=== PATIENT | female | born 1980 ===

== ENCOUNTER 2025-05-20 17:30 | Inpatient (IN) | payer OTHER, SELFPAY ==
[2025-05-20 17:34] VITALS: BP 129/75; PULSE 106; RESP 17; TEMP 36.7; O2SAT 94; BMI 19.0
--- NOTE | 2025-05-20 17:37 | ED.C_ITS ---
HPI - Psych 2 General: Chief Complaint: Psychiatric Symptoms Stated Complaint: mhe Time Seen by Provider: 05/20/25 17:36 History of Present Illness: 45-year-old female with a history of met hamphetamine dependence, nicotine dependence, panic disorder and PTSD and depression who presents to the emergency room with worsening depression and a feeling that she might hurt herself. She is worried she will go back to doing methamphetamine. Initially she says she is not suicidal but then she starts to hit towards that she was and apparently she said something along these lines at the crisis center because the crisis center sent her here. Related Data Previous Rx's ?Medication ?Instructions ?Recorded aripiprazole 10 mg tablet (Abilify) 10 mg PO .morning #30 tabs 07/21/20 clonazepam 1 mg tablet (Klonopin) 1 mg PO TID #90 tabs 07/21/20 venlafaxine 150 mg 150 mg PO QAM #30 caps 07/21 capsule,extended release 24 hr (Effexor XR) Allergies Allergy/AdvReac Type Severity Reaction Status Date / Time No Known Allergies Allergy Verified 02/22/20 11:03 Review of Systems 2 Narrative: Constitutional symptoms: Negative except as documented in HPI. Skin symptoms: Negative except as documented in HPI. Eye symptoms: Negative except as documented in HPI. ENMT symptoms: Negative except as documented in HPI. Respiratory symptoms: Negative except as documented in HPI. Cardiovascular symptoms: Negative except as documented in HPI. Gastrointestinal symptoms: Negative except as documented in HPI. Genitourinary symptoms: Negative except as documented in HPI. Musculoskeletal symptoms: Negative except as documented in HPI. Neurologic symptoms: Negative except as documented in HPI. Psychiatric symptoms: Negative except as documented in HPI. Endocrine symptoms: Negative except as documented in HPI. PFSH ED 2 PFSH: Medical History (Updated 05/20/25 @ 19:31 by April Maria MD) Marfan syndrome Scoliosis Nicotine dependence, cigarettes, uncomplicated Panic disorder without agoraphobia Chronic post-traumatic stress disorder Major depressive disorder, recurrent episode with mood-congruent psychotic features Social History (Updated 09/03/19 @ 10:40 by Vivienne Grigsby RN) Smoking and tobacco/nicotine status: current every day tobacco/nicotine user cigarettes Packs smoked per day: 0.5 Physical Exam 2 Narrative: EXAM NARRATIVE: General: Alert, no acute distress. Skin: Warm, dry. Head: Normocephalic, atraumatic. Neck: Supple, trachea midline. Eye: Extraocular movements are intact. Ears, nose, mouth and throat: mucosa moist. Cardiovascular: Regular, Normal peripheral perfusion. Respiratory: Lungs are clear to auscultation, respirations are non-labored, breath sounds are equal, Symmetrical chest wall expansion. Gastrointestinal: Soft, Nontender, Non distended Musculoskeletal: Normal ROM, no deformity. Neurological: Alert and oriented, No focal neurological deficit observed. Psychiatric: Cooperative, patient has a depressed affect and eventually hence told she may be suicidal or that she might hurt herself. She is also scared to go home because she will start back on methamphetamine Course 2 Vital Signs: Vital signs: Vital Signs Temperature 98.0 F 05/20/25 17:34 Pulse Rate 106 H 05/20/25 17:34 Respiratory Rate 18 05/20/25 18:11 Blood Pressure 129/75 05/20/25 17:34 Pulse Oximetry 100 05/20/25 18:11 Oxygen Delivery Me thod Room Air 05/20/25 18:11 MDM - Psych Medical Decision Making Medical decision making: Patient's reason for coming to the emergency room: Worsening depression, methamphetamine abuse, suicidal thoughts Social determinants patient is unemployed I reviewed the patient's medical record. No previous provider notes. I reviewed the patient's current home meds Patient has venlafaxine, clonazepam and aripiprazole listed in her medication list Alternate historians: None Differential diagnosis: Patient with reported depression and suicidal ideation. concerns for infection, alcohol intoxication, cardiac issues or other medical problems prior to psychiatric admission. Workup: labwork, ekg ordered to evaluate the pathologies and to clear the patient medically prior to psychiatric admission Lab Review: Laboratory results were reviewed and interpreted by myself the emergency room physician. - Medically cleared. - Blood alcohol level is negative, -Tylenol and salicylate levels are negative. - Urinalysis and drug screen pending at the time of admission - No anemia. - BUN and creatinine are within normal limits. Assessment of risk: - Level of risk - Was hospitalization considered? Reexamination: Patient remained stable. No increased work of breathing. No altered mental status. No focal motor deficits. Consultation: I spoke with Dr. Fernandes who agrees to admission. Assessment and plan: -Admission to neuropsychiatric unit for continued evaluation and treatment. - All lab work was reviewed and interpreted personally by myself, the ER physician - Evaluation and treatment of this problem were appropriate in the emergency setting Lab Data 05/20/25 18:09 05/20/25 18:09 Laboratory Results WBC 7.50 10^3/uL (3.29-11.43) 05/20/25 18:09 RBC 3.70 10^6/uL (3.85-5.65) L 05/20/25 18:09 Hgb 8.20 g/dL (11.27-16.99) L 05/20/25 18:09 Hct 27.8 % (36-47) L 05/20/25 18:09 MCV 75.1 fl (85-98) L 05/20/25 18:09 MCH 22.2 pg (27-33) L 05/20/25 18:09 MCHC 29.5 g/dL (30-55) L 05/20/25 18:09 RDW 18.2 % (12.1-15.1) H 05/20/25 18:09 Plt Count 239 10^3/cmm (157-399) 05/20/25 18:09 MPV 9.5 fL (7.4-10.4) 05/20/25 18:09 Neut % (Auto) 69.0 % 05/20/25 18:09 Lymph % (Auto) 22.0 % 05/20/25 18:09 [place] % (Auto) 6.1 % 05/20/25 18:09 Eos % (Auto) 1.6 % 05/20/25 18:09 Baso % (Auto) 0.8 % 05/20/25 18:09 Neut # (Auto) 5.17 10^3/uL (1.8-7.7) 05/20/25 18:09 Lymph # (Auto) 1.7 10^3/uL (0.8-4.8) 05/20/25 18:09 [place] # (Auto) 0.5 10^3/uL (0.2-0.9) 05/20/25 18:09 Eos # (Auto) 0.1 10^3/uL (0.0-0.8) 05/20/25 18:09 Baso # (Auto) 0.1 10^3/uL (0.0-0.1) 05/20/25 18:09 Nucleated RBC % (auto) 0 % 05/20/25 18:09 Nucleated RBCs # 0.0 /100WBC 05/20/25 18:09 Sodium 143 mmol/L (136-145) 05/20/25 18:09 Potassium 3.7 mmol/L (3.5-5.1) 05/20/25 18:09 Chloride 109 mmol/L (98-107) H 05/20/25 18:09 Carbon Dioxide 28 mmol/L (22-29) 05/20/25 18:09 Anion Gap 9.7 (5-19) 05/20/25 18:09 BUN 14 mg/dL (6-20) 05/20/25 18:09 Creatinine 0.8 mg/dL (0.5-0.9) 05/20/25 18:09 GFR Calculation 77.2 mL/min (90-130) L 05/20/25 18:09 Glucose 172 mg/dL (65-115) H 05/20/25 18:09 Calculated Osmolality 301 mOsm/kg (285-295) H 05/20/25 18:09 Calcium 8.2 mg/dL (8.5-10.5) L 05/20/25 18:09 Total Bilirubin 0.2 mg/dL (0.15-1.2) 05/20/25 18:09 AST 13 U/L (0-32) 05/20/25 18:09 ALT 14 U/L (0-33) 05/20/25 18:09 Alkaline Phosphatase 91 U/L (35-105) 05/20/25 18:09 Total Protein 6.5 g/dL (6.6-8.7) L 05/20/25 18:09 Albumin 3.7 g/dL (3.5-5.2) 05/20/25 18:09 Globulin 2.8 g/dL (1.3-4.6) 05/20/25 18:09 TSH 0.65 uIU/mL (0.27-4.20) 05/20/25 18:09 Salicylates < 0.3 mg/dL (3-10) L 05/20/25 18:09 Acetaminophen < 5.0 ug/mL (10-30) L 05/20/25 18:09 Ethyl Alcohol < 10 mg/dL (0-10) 05/20/25 18:09 No radiology studies performed this visit Discharge Plan Discharge Patient Disposition: Admitted As Inpatient Clinical Impression: Depression, Methamphetamine abuse Condition: Stable Coding Level of Care Code ED Psychiatric Orderly for Criss Christine
[2025-05-20 18:11] VITALS: RESP 18; O2SAT 100
[2025-05-20 18:22] LABS: Hematocrit 27.8 % (36-47); Hemoglobin 8.20 g/dL (11.27-16.99); Mean Corpuscular HGB Conc 29.5 g/dL (30-55); Mean Corpuscular Hemoglobin 22.2 pg (27-33); Mean Corpuscular Volume 75.1 fl (85-98); Nucleated Red Blood Cells % 0 %; Platelet Count 239 10^3/cmm (157-399); Red Blood Count 3.70 10^6/uL (3.85-5.65); White Blood Count 7.50 10^3/uL (3.29-11.43)
[2025-05-20 18:50] LABS: Alanine Aminotransferase 14 U/L (0-33); Albumin Level 3.7 g/dL (3.5-5.2); Alkaline Phosphatase 91 U/L (35-105); Anion Gap 9.7 (5-19); Aspartate Amino Transferase 13 U/L (0-32); Blood Urea Nitrogen 14 mg/dL (6-20); Calcium 8.2 mg/dL (8.5-10.5); Carbon Dioxide 28 mmol/L (22-29); Chloride 109 mmol/L (98-107); Globulin 2.8 g/dL (1.3-4.6); Glucose 172 mg/dL (65-115); Osmolality Calculated 301 mOsm/kg (285-295); Potassium 3.7 mmol/L (3.5-5.1); Sodium 143 mmol/L (136-145); Thyroid Stimulating Hormone 0.65 uIU/mL (0.27-4.20); Total Protein 6.5 g/dL (6.6-8.7)
[2025-05-20 18:55] LABS: Acetaminophen < 5.0 ug/mL (10-30); Alcohol Level < 10 mg/dL (0-10); Salicylate < 0.3 mg/dL (3-10)
[2025-05-20 20:18] LABS: Glucose Urine UA Negative (Normal); Nitrate Urine Negative (Negative)
[2025-05-20 20:24] LABS: Add Urine Microscopic? YES; HCG Qualitative Urine. Negative (Negative)
--- NOTE | 2025-05-20 20:26 | PC.NURSE ---
96 HH Pt served with copy of 96 right sheet by this RN and security. Pt in [facility] chair, A&O and pleasant. Pt stated that she was unfamiliar with a 96 . Voiced no questions at that time.
[2025-05-20 20:27] VITALS: BP 125/64; PULSE 90; RESP 18; TEMP 36.8; O2SAT 98
[2025-05-20 20:29] LABS: Specific Gravity, Urine 1.031 (1.005-1.030)
[2025-05-20 20:33] LABS: PCP Screen Urine Negative (Negative)
[2025-05-20 21:46] VITALS: BP 125/64; PULSE 90; RESP 18; TEMP 36.8; O2SAT 98
--- OUTSIDE RECORDS SUMMARY | 2025-05-21 01:28 | XMS_ITS | Encounter Summary ---
Author Organization [facility] Address [address] [place] [address] Care Team Providers Care Combine Mechanic Name Role Phone Niru Guerrero DO Primary Care Provider +1- [phone] Encounter Details Date Type Department Care Team (Latest Contact Info) Description 10/21/2003 Outpatient Historical [facility] Medicine [address] [phone] Ara Giron MD [address] [place] [address] VAGINITIS NOS (Primary Dx); MENTAL DISORDER-POSTPART Social History Tobacco Use Types Packs/Day Years Used Date Smoking Tobacco: Never Assessed Comments Unknown Sex and Gender Information Value Date Recorded Sex Assigned at Not on file 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
--- OUTSIDE RECORDS SUMMARY | 2025-05-21 01:29 | XMS_ITS | Encounter Summary ---
Author Organization [facility] Address [address] [place] [address] Care Team Providers Care Field Observer Name Role Phone Niru Guerrero DO Primary Care Provider +1- [phone] Encounter Details Date Type Department Care Team (Latest Contact Info) Description 12/31/2004 Outpatient Historical [facility] Medicine [address] [phone] Ara Giron MD [address] [place] [address] SUPERVIS OTHER NORMAL PREG (Primary Dx) Social History Tobacco Use Types Packs/Day Years Used Date Smoking Tobacco: Never Assessed Comments Unknown Sex and Gender Information Value Date Recorded Sex Assigned at Not on file 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
--- OUTSIDE RECORDS SUMMARY | 2025-05-21 01:30 | XMS_ITS | Clinical Summary ---
Author Organization [facility] Address [address] [place] [address] Phone Care Team Providers Care Lining Folder Name Role Phone Niru Guerrero Primary Care Provider Allergies No known active allergies Medications PHENAZOPYRIDINE HCL (AZO ORAL) Take by mouth. Active clonazePAM (KlonoPIN) 2 mg tablet Take by mouth 3 times daily. Active venlafaxine (EFFEXOR XR) 150 mg Extended Release 24 hour capsule Take 150 mg by mouth daily. Active lithium carbonate (ESKALITH CR) 450 mg Controlled Release tablet Take 450 mg by mouth 2 times daily. Active ARIPiprazole (ABILIFY) 2 mg tablet Take 2 mg by mouth daily. Active ondansetron (ZOFRAN) 4 mg Tablet Take 1 Tablet (4 mg) by mouth every 6 hours as needed for Nausea. 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 Gender Identity Not on file Sexual Orientation Not on file Last Filed Vital Signs Vital Sign Reading Time Taken Comments Blood Pressure 114/70 12/01/2019 4:23 PM CDT Pulse - - Temperature 37.3 C (99.2 F) 12/01/2019 4:23 PM CDT Respiratory Rate 15 12/01/2019 4:23 PM CDT Oxygen Saturation 100% 12/01/2019 4:23 PM CDT Inhaled Oxygen Concentration - - Weight 81.5 kg (179 lb 9.6 oz) 12/01/2019 4:23 P M CDT Height 182.9 cm (6') 12/01/2019 4:23 PM CDT Body Mass Index 24.36 12/01/2019 4:23 PM CDT Plan of Treatment Health Maintenance Due Date Last Done Comments DTAP/TDAP/TD VACCINES (1 - Tdap) 1998 HEPATITIS B VACCINES (1 of 3 - 19+ 3-dose series) 1998 Preventative Visit-Managed Medicaid 1998 HPV/Cotest (21-29) 2000 CERVICAL CANCER SCREENING 2009 HPV/Cotest (30-65) 2009 PAP SMEAR 2009 BREAST CANCER SCREENING 2019 COLORECTAL SCREENING 2024 Colorectal Cancer Screening 2024 FIT-DNA Q 3 years 2024 FIT/FOBT Q 1 year 2024 Flex Sig/CT Colonography Q 5 years 2024 INFLUENZA VACCINE (#1) 2025 04/22/2005 HPV VACCINES Aged Out No longer eligi ble based on patient's age to complete this topic Insurance [place] Care Teams Lining Folder Relationship Specialty Start Date End Date Niru Guerrero DO [address] [place] [address] PCP - General Family Practice 03/30/16
--- OUTSIDE RECORDS SUMMARY | 2025-05-21 01:30 | XMS_ITS | Encounter Summary ---
Author Organization [facility] Address [address] [place] [address] Care Team Providers Care Machine Slat Basket Maker Name Role Phone Niru Guerrero DO Primary Care Provider [phone]- [phone] Encounter Details Date Type Department Care Team (Latest Contact Info) Description 04/01/2005 Outpatient Historical [facility] Medicine [address] [phone] Ara Giron MD [address] [place] [address] SUPERVIS OTHER NORMAL PREG (Primary Dx) Social History Tobacco Use Types Packs/Day Years Used Date Smoking Tobacco: Never Assessed Comments Unknown Sex and Gender Information Value Date Recorded Sex Assigned at Not on file 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
--- OUTSIDE RECORDS SUMMARY | 2025-05-21 01:31 | XMS_ITS | Encounter Summary ---
Author Organization [facility] Address [address] [place] [address] Care Team Providers Care Python Programmer Name Role Phone Niru Guerrero DO Primary Care Provider +1- [phone] Encounter Details Date Type Department Care Team (Latest Contact Info) Description 04/22/2005 Outpatient Historical [facility] Medicine [address] [phone] Ara Giron MD [address] [place] [address] SUPERVIS OTHER NORMAL PREG (Primary Dx); DYSTHYMIC DISORDER; Vaccine for influenza Social History Tobacco Use Types Packs/Day Years Used Date Smoking Tobacco: Never Assessed Comments Unknown Sex and Gender Information Value Date Recorded Sex Assigned at Not on file Legal 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
--- OUTSIDE RECORDS SUMMARY | 2025-05-21 01:32 | XMS_ITS | Encounter Summary ---
Author Organization [facility] Address [address] [place] [address] Care Team Providers Care Diamond Die Polisher Name Role Phone Niru Guerrero DO Primary Care Provider +1- [phone] Encounter Details Date Type Department Care Team (Latest Contact Info) Description 01/22/2005 Outpatient Historical 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
--- OUTSIDE RECORDS SUMMARY | 2025-05-21 01:32 | XMS_ITS | Encounter Summary ---
Author Organization [facility] Address [address] [place] [address] Care Team Providers Care Power Generation Turbine Room Operator Name Role Phone Niru Guerrero DO Primary Care Provider +1- [phone] Encounter Details Date Type Department Care Team (Latest Contact Info) Description 01/22/2005 Outpatient Historical [facility] Medicine [place] [address] [place] [phone] Krysta Hernandez, 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
--- OUTSIDE RECORDS SUMMARY | 2025-05-21 01:33 | XMS_ITS | Encounter Summary ---
Author Organization [facility] Address [address] [place] [address] Care Team Providers Care Tight Barrel Inspector Name Role Phone Niru Guerrero DO Primary Care Provider +1- [phone] Encounter Details Date Type Department Care Team (Latest Contact Info) Description 02/25/2005 Outpatient Historical [facility] Medicine [address] [phone] Ara Giron MD [address] [place] [address] MILD DYSPLASIA OF CERVIX (Primary Dx); SUPERVIS OTHER NORMAL PREG Social History Tobacco Use Types Packs/Day Years Used Date Smoking Tobacco: Never Assessed Comments Unknown Sex and Gender Information Value Date Recorded Sex Assigned at Not on file 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
--- OUTSIDE RECORDS SUMMARY | 2025-05-21 01:34 | XMS_ITS | Encounter Summary ---
Author Organization [facility] Address [address] [place] [address] Care Team Providers Care Production Solderer Name Role Phone Niru Guerrero DO Primary Care Provider +1- [phone] Encounter Details Date Type Department Care Team (Latest Contact Info) Description 05/06/2005 Outpatient Historical [facility] Medicine [address] [phone] Aar Giron MD [address] [place] [address] SUPERVIS OTHER NORMAL PREG (Primary Dx) Social History Tobacco Use Types Packs/Day Years Used Date Smoking Tobacco: Never Assessed Comments Unknown Sex and Gender Information Value Date Recorded Sex Assigned at Not on file 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
--- OUTSIDE RECORDS SUMMARY | 2025-05-21 01:34 | XMS_ITS | Encounter Summary ---
Author Organization [facility] Address [address] [place] [address] Care Team Providers Care Real Estate Financial Analyst Name Role Phone Niru Guerrero DO Primary Care Provider +1- [phone] Encounter Details Date Type Department Care Team (Latest Contact Info) Description 05/21/2005 Outpatient Historical [facility] Medicine [address] [phone] Ara Giron MD [address] [place] [address] SUPERVIS OTHER NORMAL PREG (Primary Dx) Social History Tobacco Use Types Packs/Day Years Used Date Smoking Tobacco: Never Assessed Comments Unknown Sex and Gender Information Value Date Recorded Sex Assigned at Not on file Legal Sex Female 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
--- OUTSIDE RECORDS SUMMARY | 2025-05-21 01:35 | XMS_ITS | Encounter Summary ---
Author Organization [facility] Address [address] [place] [address] Care Team Providers Care Radiology Resident Name Role Phone Niru Guerrero DO Primary Care Provider +1- [phone] Encounter Details Date Type Department Care Team (Latest Contact Info) Description 05/31/2005 Outpatient Historical [facility] Medicine [address] [phone] Sourav Villanueva MD [address] [place] [address] SUPERVIS OTHER NORMAL PREG (Primary Dx) Social History Tobacco Use Types Packs/Day Years Used Date Smoking Tobacco: Never Assessed Comments Unknown Sex and Gender Information Value Date Recorded Sex Assigned at Not on file 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
--- OUTSIDE RECORDS SUMMARY | 2025-05-21 01:36 | XMS_ITS | Encounter Summary ---
Author Organization [facility] Address [address] [place] [address] Care Team Providers Care Jig Grinder Set Up Operator Name Role Phone Niru Gurerero DO Primary Care Provider +1- [phone] Encounter Details Date Type Department Care Team (Latest Contact Info) Description 03/03/2006 Outpatient Historical [facility] [place] [address] [phone] Krysta Hernandez, [facility] [address] [phone] Leukorrhea, not Specified as Infective (Primary Dx) Social History Tobacco Use Types Packs/Day Years Used Date Smoking Tobacco: Never Assessed Comments Unknown Sex and Gender Information Value Date Recorded Sex Assigned at Not on file 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
--- OUTSIDE RECORDS SUMMARY | 2025-05-21 01:36 | XMS_ITS | Encounter Summary ---
Author Organization [facility] Address [address] [place] [address] Care Team Providers Care Atg Architect Name Role Phone Niru Guerrero DO Primary Care Provider +1- [phone] Encounter Details Date Type Department Care Team (Latest Contact Info) Description 06/07/2005 Outpatient Historical [facility] Medicine [address] [phone] Sourav Villanueva MD [address] [place] [address] SUPERVIS OTHER NORMAL PREG (Primary Dx) Social History Tobacco Use Types Packs/Day Years Used Date Smoking Tobacco: Never Assessed Comments Unknown Sex and Gender Information Value Date Recorded Sex Assigned at Not on file Legal Sex Female 5: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
--- OUTSIDE RECORDS SUMMARY | 2025-05-21 01:37 | XMS_ITS | Encounter Summary ---
Author Organization [facility] Address [address] [place] [address] Care Team Providers Care Telecommunications Project Manager Name Role Phone Niru Guerrero DO Primary Care Provider +1- [phone] Encounter Details Date Type Department Care Team (Latest Contact Info) Description 06/14/2005 Outpatient Historical [facility] Medicine [address] [phone] Sourav Villanueva MD [address] [place] [address] POSTPART CARE AFTER DEL (Primary Dx) Social History Tobacco Use Types Packs/Day Years Used Date Smoking Tobacco: Never Assessed Comments Unknown Sex and Gender Information Value Date Recorded Sex Assigned at Not on file Legal Sex Female 5:28 AM PARTITION NOTCHER Gender Identity Not on file Sexual Orientation Not on file documented as of this encounter Plan of Treatment Not on file documented as of this encounter Visit Diagnoses Diagnosis care and examination immediately after delivery- Primary documented in this encounter Care Teams Telecommunications Project Manager Relationship Specialty Start Date End Date Niru Guerrero DO [address] [place] [phone] PCP - General Family Practice 03/30/16 documented as of this encounter
--- OUTSIDE RECORDS SUMMARY | 2025-05-21 01:37 | XMS_ITS | Encounter Summary ---
Author Organization [facility] Address [address] [place] [address] Care Team Providers Care Senior Quality Control Inspector Name Role Phone Niru Guerrero DO Primary Care Provider +1 [phone] Encounter Details Date Type Department Care Team (Latest Contact Info) Description 03/03/2006 Outpatient Historical [facility] Medicine [address] [phone] Krysta Hernandez, [facility] [address] [phone] Abnormal Glandular Papanicolaou Smear of Cervix (Primary Dx); Panic Disorder without Agoraphobia; Dysthymic Disorder Social History Tobacco Use Types Packs/Day Years Used Date Smoking Tobacco: Never Assessed Comments Unknown Sex and Gender Information Value Date Recorded Sex Assigned at Not on file Legal Sex Female 5:28 AM BUS DISPATCHER INTERSTATE Gender Identity Not on file Sexual Orientation Not on file documented as of this encounter Plan of Treatment Not on file documented as of this encounter Visit Diagnoses Diagnosis Abnormal glandular Papanicolaou smear of cervix- Primary Panic disorder without agoraphobia Dysthymic disorder documented in this encounter Care Teams Senior Quality Control Inspector Relationship Specialty Start Date End Date Niru Guerrero DO [address] [place] [address] PCP - General Family Practice 03/30/16 documented as of this encounter
--- OUTSIDE RECORDS SUMMARY | 2025-05-21 01:38 | XMS_ITS | Encounter Summary ---
Author Organization [facility] Address [address] [place] [address] Care Team Providers Care Diamond Grinder Name Role Phone Niru Guerrero DO Primary Care Provider +1- [phone] Encounter Details Date Type Department Care Team (Latest Contact Info) Description 07/15/2005 Outpatient Historical [facility] Medicine [address] [phone] Ara Giron MD [address] [place] [address] POSTPART CARE AFTER DEL (Primary Dx) Social History Tobacco Use Types Packs/Day Years Used Date Smoking Tobacco: Never Assessed Comments Unknown Sex and Gender Information Value Date Recorded Sex Assigned at Not on file Legal Sex Female 5:28 AM 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
--- OUTSIDE RECORDS SUMMARY | 2025-05-21 01:38 | XMS_ITS | Encounter Summary ---
Author Organization [facility] Address [address] [place] [address] Care Team Providers Care Laboratory Director Name Role Phone Niru Guerrero DO Primary Care Provider +1- [phone] Encounter Details Date Type Department Care Team (Latest Contact Info) Description 03/28/2006 Outpatient Historical [facility] [address] [place] [address] Sourav Villanueva MD [address] [place] [address] Moderate Dysplasia of Cervix (Primary Dx) Social History Tobacco Use Types Packs/Day Years Used Date Smoking Tobacco: Never Assessed Comments Unknown Sex and Gender Information Value Date Recorded Sex Assigned at Not on file Legal Sex Female 5:28 AM CARD GRINDER Gender Identity Not on file Sexual Orientation Not on file documented as of this encounter Plan of Treatment Not on file documented as of this encounter Visit Diagnoses Diagnosis Moderate dysplasia of cervix- Primary documented in this encounter Care Teams Laboratory Director Relationship Specialty Start Date End Date Niru Guerrero DO [address] [place] [address] PCP - General Family Practice 03/30/16 documented as of this encounter
--- OUTSIDE RECORDS SUMMARY | 2025-05-21 01:39 | XMS_ITS | Encounter Summary ---
Author Organization [facility] Address [address] [place] [address] Care Team Providers Care Geology Technician Name Role Phone Niru Guerrero DO Primary Care Provider +1- [phone] Encounter Details Date Type Department Care Team (Latest Contact Info) Description 03/28/2006 Outpatient Historical [address] [phone] Sourav Villanueva MD [address] [place] [address] Abnormal Glandular Papanicolaou Smear of Cervix (Primary Dx) Social History Tobacco Use Types Packs/Day Years Used Date Smoking Tobacco: Never Assessed Comments Unknown Sex and Gender Information Value Date Recorded Sex Assigned at Not on file Legal Sex Female 5:28 AM DEPOT 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
--- OUTSIDE RECORDS SUMMARY | 2025-05-21 01:39 | XMS_ITS | Encounter Summary ---
Author Organization [facility] Address [address] [place] [address] Care Team Providers Care Student Success Coach Name Role Phone Niru Guerrero DO Primary Care Provider +1- [phone] Encounter Details Date Type Department Care Team (Latest Contact Info) Description 03/28/2006 Outpatient Historical [address] [phone] Sourav Villanueva MD [address] [place] [address] Dysplasia of Cervix, Unspecified (Primary Dx) Social History Tobacco Use Types Packs/Day Years Used Date Smoking Tobacco: Never Assessed Comments Unknown Sex and Gender Information Value Date Recorded Sex Assigned at Not on file Legal Sex Female 5:28 AM PRIMARY 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
--- OUTSIDE RECORDS SUMMARY | 2025-05-21 01:40 | XMS_ITS | Encounter Summary ---
Author Organization [facility] Address [address] [place] [address] Care Team Providers Care Filter Changing Technician Name Role Phone Niru Guerrero DO Primary Care Provider +1- [phone] Encounter Details Date Type Department Care Team (Latest Contact Info) Description 03/24/2006 Outpatient Historical [facility] Medicine [place] [address] [phone] Krysta Hernandez, [facility] [address] [phone] Abnormal Glandular Papanicolaou Smear of Cervix (Primary Dx) Social History Tobacco Use Types Packs/Day Years Used Date Smoking Tobacco: Never Assessed Comments Unknown Sex and Gender Information Value Date Recorded Sex Assigned at Not on file Legal Sex Female 5:28 AM DISABILITY RATER Gender Identity Not on file Sexual Orientation Not on file documented as of this encounter Plan of Treatment Not on file documented as of this encounter Visit Diagnoses Diagnosis Abnormal glandular Papanicolaou smear of cervix- Primary documented in this encounter Care Teams Filter Changing Technician Relationship Specialty Start Date End Date Niru Guerrero DO [address] [place] [address] PCP - General Family Practice 03/30/16 documented as of this encounter
--- OUTSIDE RECORDS SUMMARY | 2025-05-21 01:41 | XMS_ITS | Encounter Summary ---
Author Organization [facility] Address [address] [place] [address] Care Team Providers Care Support Director Name Role Phone Niru Guerrero DO Primary Care Provider +1 [phone] Encounter Details Date Type Department Care Team (Latest Contact Info) Description 03/15/2007 Outpatient Historical [facility] Medicine [address] [phone] Krysta Hernandez, [facility] [address] [phone] Affective Personality (CMS/HCC) (Primary Dx) Social History Tobacco Use Types Packs/Day Years Used Date Smoking Tobacco: Never Assessed Comments Unknown Sex and Gender Information Value Date Recorded Sex Assigned at Not on file Legal Sex Female 5:28 AM REFERRAL MANAGER Gender Identity Not on file Sexual Orientation Not on file documented as of this encounter Plan of Treatment Not on file documented as of this encounter Procedures Procedure Name Priority Date/Time Associated Diagnosis Comments DRUG SCREEN, URINE Routine 03/15/2007 11 :46 AM CDT documented in this encounter Results * (ABNORMAL) DRUG SCREEN, URINE (03/15/2007 11:46 AM CDT) AMPHETAMINE QUAL, URINE Drug Negative Drug Negative INTERFACE SYSTEM Comment: All components of the Urine Drug Screen are performed by Immunoassay. Confirmation must be requested by physician before being sent out. NOTE: The ingestion of natural herbal and plant products containing Ephedra/Ephedra metabolites can produce in urine one or more substances capable of cross reacting with amphetamine/methamphetamine immunoassays. This test provides a preliminary result only. A more specific alternative chemical method must be used to obtain a confirmed analytical result. Drug Screening Cutoff Amphetamine/Methamphetamine 1000 ng/ml Barbiturates 200 ng/ml Benzodiazepines 200 ng/ml Cannabinoid 50 ng/ml Cocaine Metabolite 300 ng/ml Opiates 300 ng/ml PCP 25 ng/ml Immunoassay Screening results above cutoff value are reported as Positive. BARBITURATE QUAL, URINE Drug Negative Drug Negative INTERFACE SYSTEM COCAINE QUAL URINE Drug Negative Drug Negative INTERFACE SYSTEM PCP QUAL, URINE Drug Negative Drug Negative INTERFACE SYSTEM CANNABINOIDS QUAL, URINE Drug Positive(A) Drug Negative INTERFACE SYSTEM BENZODIAZEPINE QUAL, URINE Drug Positive(A) Drug Negative INTERFACE SYSTEM OPIATE QUAL, URINE Drug Negative Drug Negative INTERFACE SYSTEM 03/15/2007 11:4 6 AM CDT us Krysta Hernandez CALENDER OPERATOR URINE ORDERABLES Edited INTERFACE SYSTEM Refer to clinic/hospital department documented in this encounter Visit Diagnoses Diagnosis Bipolar I disorder, most recent episode (or current) unspecified (CMS/[facility])- Primary Bipolar I disorder, most recent episode (or current) unspecified documented in this encounter Care Teams Support Director Relationship Specialty Start Date End Date Niru Guerrero DO [address] [place] [address] PCP - General Family Practice 03/30/16 documented as of this encounter
--- OUTSIDE RECORDS SUMMARY | 2025-05-21 01:41 | XMS_ITS | Clinical Summary ---
Author Organization [facility] Address [address] [facility] Attn: Epic Prelude ADT [place] [address] Care Team Providers Care Dryerman/Woman Name Role Phone Niru Guerrero Primary Care Provider +1- [phone] Allergies No known active allergies Medications clonazePAM (KlonoPIN) 0.5 mg TabletIndication s:Generalized anxiety disorder Take 1 Tablet (0.5 mg) by mouth 1 time daily as needed for Anxiety. 20 Tablet 12/02/2022 Active Active Problems Problem Noted Date Diagnosed Date Agoraphobia 12/02/2022 Cigarette dependence 03/30/2016 Immunizations Immunization Administration Dates Next Due Influenza Seasonal Unspecified Formulation IM Social History Tobacco Use Types Packs/Day Years Used Date Smoking Tobacco: Every Day Cigarettes Alcohol Use Standard Drinks/Week Comments No 0 (1 standard drink = 0.6 oz pur e alcohol) Comments No Sex and Gender Information Value Date Recorded Sex Assigned at Not on file Legal Sex Female 1:00 AM HAND PLATE STACKER Gender Identity Not on file Sexual Orientation Not on file Last Filed Vital Signs Vital Sign Reading Time Taken Comments Blood Pressure 118/70 12/02/2022 9:23 AM CDT Pulse 90 12/02/2022 9:44 AM CDT Temperature 37.2 C (99 F) 12/02/2022 9:23 AM CDT Respiratory Rate 18 12/02/2022 9:23 AM CDT Oxygen Saturation 99% 12/02/2022 9:23 AM CDT Inhaled Oxygen Concentration - - Weight 66.7 kg (147 lb) 12/02/2022 9:23 AM CDT Height 185.4 cm (6' 1 ) 12/02/2022 9:23 AM CDT Body Mass Index 19.39 12/02/2022 9:23 AM CDT Plan of Treatment Health Maintenance Due Date Last Done Comments DTAP/TDAP/TD VACCINES (1 - Tdap) 1998 HEPATITIS B VACCINES (1 of 3 - 19+ 3-dose series) 1998 HPV/Cotest (21-29) 2000 CERVICAL CANCER SCREENING 2009 HPV/Cotest (30-65) 2009 PAP SMEAR 2009 BREAST CANCER SCREENING 2019 COLORECTAL SCREENING 2024 Colorectal Cancer Screening 2024 FIT-DNA Q 3 years 2024 FIT/FOBT Q 1 year 2024 Flex Sig/CT Colonography Q 5 years 2024 INFLUENZA VACCINE (#1) 2025 04/22/2005 HPV VACCINES Aged Out No longer eligi ble based on patient's age to complete this topic Care Teams Dryerman/Woman Relationship Specialty Start Date End Date Niru Guerrero DO [address] [place] [address] PCP - General Family Practice 03/30/16
--- OUTSIDE RECORDS SUMMARY | 2025-05-21 01:42 | XMS_ITS | Encounter Summary ---
Author Organization [facility] [employer] Address [address] [place] [address] Care Team Providers Care [address] Tester Name Role Phone Niru Guerrero DO Primary Care Provider +1- [phone] Encounter Details Date Type Department Care Team (Latest Contact Info) Description 04/01/2006 Outpatient Historical [facility] [address] [place] [address] [place] [address] Ara Giron MD [address] [place] [phone] Moderate Dysplasia of Cervix (Primary Dx) Social History Tobacco Use Types Packs/Day Years Used Date Smoking Tobacco: Never Assessed Comments Unknown Sex and Gender Information Value Date Recorded Sex Assigned at Not on file Legal Sex Female 5:28 AM GERIATRIC PERSONAL CARE AIDE Gender Identity Not on file Sexual Orientation Not on file documented as of this encounter Plan of Treatment Not on file documented as of this encounter Visit Diagnoses Diagnosis Moderate dysplasia of cervix- Primary documented in this encounter Care Teams Drive Tester Relationship Specialty Start Date End Date Niru Guerrero DO [address] [place] [address] PCP - General Family Practice 03/30/16 documented as of this encounter
--- OUTSIDE RECORDS SUMMARY | 2025-05-21 01:43 | XMS_ITS | Encounter Summary ---
Author Organization [facility] Address [address] [place] [address] Care Team Providers Care Clinical Staff Anesthesiologist Name Role Phone Niru Guerrero DO Primary Care Provider +1- [phone] Encounter Details Date Type Department Care Team (Latest Contact Info) Description 04/01/2006 Outpatient Historical [facility] Medicine [address] [phone] Ara Giron MD [address] [place] [phone] Moderate Dysplasia of Cervix (Primary Dx) Social History Tobacco Use Types Packs/Day Years Used Date Smoking Tobacco: Never Assessed Comments Unknown Sex and Gender Information Value Date Recorded Sex Assigned at Not on file Legal Sex Female 5:28 AM LODGING FACILITIES MANAGER Gender Identity Not on file Sexual Orientation Not on file documented as of this encounter Plan of Treatment Not on file documented as of this encounter Visit Diagnoses Diagnosis Moderate dysplasia of cervix- Primary documented in this encounter Care Teams Clinical Staff Anesthesiologist Relationship Specialty Start Date End Date Niru Guerrero DO [address] [place] [address] PCP - General Family Practice 03/30/16 documented as of this encounter
--- OUTSIDE RECORDS SUMMARY | 2025-05-21 01:43 | XMS_ITS | Encounter Summary ---
Author Organization [facility] Address [address] [place] [address] Care Team Providers Care Foundry Patternmaker Name Role Phone Niru Guerrero DO Primary Care Provider +1- [phone] Encounter Details Date Type Department Care Team (Latest Contact Info) Description 12/15/2006 Outpatient Historical [facility] Medicine [place] [address] [phone] Krysta Hernandez, [facility] [address] [phone] Generalized Anxiety Disorder (Primary Dx); Dysthymic Disorder Social History Tobacco Use Types Packs/Day Years Used Date Smoking Tobacco: Never Assessed Comments Unknown Sex and Gender Information Value Date Recorded Sex Assigned at Not on file Legal Sex Female 5: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
--- OUTSIDE RECORDS SUMMARY | 2025-05-21 01:44 | XMS_ITS | Encounter Summary ---
Author Organization [facility] Address [address] [place] [address] Care Team Providers Care Backshoe Person Name Role Phone Niru Guerrero DO Primary Care Provider +1- [phone] Encounter Details Date Type Department Care Team (Latest Contact Info) Description 10/21/2003 Outpatient Historical [facility] Medicine [address] [phone] Ara Giron MD [address] [place] [address] VAGINITIS NOS (Primary Dx) Social History Tobacco Use Types Packs/Day Years Used Date Smoking Tobacco: Never Assessed Comments Unknown Sex and Gender Information Value Date Recorded Sex Assigned at Not on file Legal Sex Female 5:28 AM AUTHORIZATION REPRESENTATIVE Gender Identity Not on file Sexual Orientation Not on file documented as of this encounter Plan of Treatment Not on file documented as of this encounter Visit Diagnoses Diagnosis Vaginitis and vulvovaginitis, unspecified- Primary documented in this encounter Care Teams Backshoe Person Relationship Specialty Start Date End Date Niru Guerrero DO [address] [place] [address] PCP - General Family Practice 03/30/16 documented as of this encounter
--- OUTSIDE RECORDS SUMMARY | 2025-05-21 01:44 | XMS_ITS | Encounter Summary ---
Author Organization [facility] Address [address] [place] [address] Care Team Providers Care Chief Clerk Name Role Phone Niru Guerrero DO Primary Care Provider +1 [phone] Encounter Details Date Type Department Care Team (Latest Contact Info) Description 03/15/[address] [facility] [address] [phone] Krysta Hernandez, [facility] [address] [phone] Affective Personality (CMS/HCC) (Primary Dx); Generalized Anxiety Disorder Social History Tobacco Use Types Packs/Day Years Used Date Smoking Tobacco: Never Assessed Comments Unknown Sex and Gender Information Value Date Recorded Sex Assigned at Not on file Legal Sex Female 5:28 AM SCOREBOARD OPERATOR Gender Identity Not on file Sexual Orientation Not on file documented as of this encounter Plan of Treatment Not on file documented as of this encounter Visit Diagnoses Diagnosis Bipolar I disorder, most recent episode (or current) unspecified (CMS/HCC)- Primary Bipolar I disorder, most recent episode (or current) unspecified Generalized anxiety disorder documented in this encounter Care Teams Chief Clerk Relationship Specialty Start Date End Date Niru Guerrero DO [address] [place] [address] PCP - General Family Practice 03/30/16 documented as of this encounter
--- OUTSIDE RECORDS SUMMARY | 2025-05-21 01:45 | XMS_ITS | Encounter Summary ---
Author Organization [facility] Address [address] [place] [address] Care Team Providers Care Program Attendant Name Role Phone Niru Guerrero DO Primary Care Provider [phone] Encounter Details Date Type Department Care Team (Latest Contact Info) Description 03/31/2007 Outpatient Historical [facility] Medicine Mobile [address] [phone] Krysta Hernandez, [facility] [address] [phone] Generalized Anxiety Disorder (Primary Dx); Dysthymic Disorder Social History Tobacco Use Types Packs/Day Years Used Date Smoking Tobacco: Never Assessed Comments Unknown Sex and Gender Information Value Date Recorded Sex Assigned at Not on file Legal Sex Female 5:28 AM DIRECTOR OF RECRUITMENT Gender Identity Not on file Sexual Orientation Not on file documented as of this encounter Plan of Treatment Not on file documented as of this encounter Visit Diagnoses Diagnosis Generalized anxiety disorder- Primary Dysthymic disorder documented in this encounter Care Teams Program Attendant Relationship Specialty Start Date End Date Niru Guerrero DO [address] [place] [phone] PCP - General Family Practice 03/30/16 documented as of this encounter
--- OUTSIDE RECORDS SUMMARY | 2025-05-21 01:46 | XMS_ITS | Encounter Summary ---
Author Organization [facility] Address [address] [place] [address] Care Team Providers Care Tool Marker Name Role Phone Niru Guerrero DO Primary Care Provider [phone] Encounter Details Date Type Department Care Team (Late st Contact Info) Description 10/21/2003 Outpatient Historical [facility] Medicine [address] [phone] Ara Giron MD [address] [place] [phone] Social History Tobacco Use Types Packs/Day Years Used Date Smoking Tobacco: Never Assessed Comments Unknown Sex and Gender Information Value Date Recorded Sex Assigned at Not on file Legal Sex Female 5:28 AM MANAGER MERCHANDISE Gender Identity Not on file Sexual Orientation Not on file documented as of this encounter Plan of Treatment Not on file documented as of this encounter Visit Diagnoses Not on filedocumented in this encounter Care Teams Tool Marker Relationship Specialty Start Date End Date Niru Guerrero DO [address] [place] [phone] PCP - General Family Practice 03/30/16 documented as of this encounter
[2025-05-21 06:00] VITALS: BP 113/64; PULSE 87; RESP 14; TEMP 36.8; O2SAT 90
[2025-05-21 14:00] VITALS: BP 144/80; PULSE 92; RESP 16; TEMP 36.8; O2SAT 100
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
[2025-05-21 19:59] VITALS: BP 132/74; PULSE 87; RESP 17; TEMP 37.3; O2SAT 100
[2025-05-22 06:00] VITALS: BP 129/76; PULSE 78; RESP 18; O2SAT 97
[2025-05-22 14:00] VITALS: BP 121/65; PULSE 81; RESP 16; TEMP 36.6; O2SAT 98
--- NOTE | 2025-05-22 14:30 | P.NPUPN_ITS ---
Subjective NPU 2 Subjective: 45-year-old female admitted with suicida l ideation in the context of a long history of intermittent use of methamphetamine since the age of 15. She had continued to report feeling depressed and suicidal. She had reported having problems with managing anxiety. She had expressed frustration with not being able to find a place to receive treatment but remained insistent that she be placed in inpatient rehabilitation in order to remain sober. She had reported no cravings for methamphetamine at this time. She had continued to report some feelings of hopelessness and stated that she also struggled with managing her ability to control her worry. She had denied any manic symptoms or any psychotic symptoms. Mental Status Exam 2 MSE Comments: This is a disheveled, tall,female who was lying in bed with poor hygiene and poor eye contact who was minimally cooperative on interview. She appeared in moderate distress today. There was evidence of mild psychomotor retardation. Her mood was described as depressed. Her affect was dysphoric. Her thought process was linear, logical, and goal-directed. Her thought content revealed passive suicidal ideation with no active plan. She denied any homicidal ideation. There was no evidence of any delusional thinking. She did not appear to be responding to internal stimuli. There was mild paranoia evident. Her attention span appeared poor. She was alert and oriented to person, place, time, and situation. Her insight is poor. Her judgment is poor. Her impulse control was limited. Her recent and remote memory were limited. Vitals/I&O/Wt Last Vital Signs Temp 99.1 F 05/21/25 19:59 Pulse 78 05/22/25 06:00 Resp 18 05/22/25 06:00 BP 129/76 05/22/25 06:00 Pulse Ox 97 05/22/25 06:00 O2 Del Method Room Air 05/22/25 06:00 Weight last 48 hrs Weight 63.503 kg Data NPU 05/20/25 18:09 05/20/25 18:09 Micro: Microbiology 05/20/25 20:09 Urine Culture - Preliminary Urine,Clean Catch Microbiology 05/20/25 20:09 Urine,Clean Catch Urine Culture - Preliminary A&P Assessment and plan 1. Major depressive disorder, recurrent, unspecified: 2. Methamphetamine abuse: 3. Chronic post-traumatic stress disorder: Plan: 45-year-old female prior history of PTSD and depression endorsing continued use of methamphetamine over the last 30 years with considerable dysphoria and no prior history of substance abuse treatment. #1.? Engage patient in individual milieu and group therapy. #2?? Recommend sober living treatment at the highest level of care to which the patient is willing to commit #3??? Start zoloft 25mg daily for anxiety and depression. ??Consider inpatient substance abuse treatment. ??? #4?? TO-15 minute checks? #5?? Will attempt to gather collateral information PDMP PDMP Reviewed: Not Reviewed Involuntary Hold Information 2 Hold Status: Legal Status: 96 Hour Hold Date/Time Hold Expires: 05/24/25 @19:08 Attestations NPU 2 Medical Necessity Statement*: Inpatient hospitalization is medically necessary and deemed to be the clinically appropriate intervention at this time. Patient will be started on medications and adjusted accordingly. Patient's likely length of stay is 4 to 7 days. Coding Level of Care Code Acute Code for [facility] Fwd Diagnoses Major depressive disorder, recurrent, unspecified F33.9 Methamphetamine abuse F15.10 Chronic post-traumatic stress disorder F43.12
[2025-05-22 20:00] VITALS: BP 129/78; PULSE 84; RESP 16; TEMP 36.8; O2SAT 99
[2025-05-23 06:00] VITALS: BP 133/78; PULSE 86; RESP 15; TEMP 36.9; O2SAT 98
[2025-05-23 14:00] VITALS: BP 129/78; PULSE 88; RESP 20; TEMP 36.8; O2SAT 100
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
[2025-05-23 19:38] VITALS: BP 131/70; PULSE 85; RESP 17; TEMP 37.1; O2SAT 98
[2025-05-24 06:00] VITALS: BP 115/67; PULSE 82; RESP 16; TEMP 36.9; O2SAT 96
[2025-05-24 12:10] VITALS: BP 115/67; PULSE 82; RESP 16; TEMP 36.9; O2SAT 96
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
--- NOTE | 2025-05-24 13:14 | PC.NURSE ---
written discharge instructions discussed and left with patients pt states understanding and compliance.
== END 2025-05-24 13:31 | disposition home or self-care (01) | DRG 885 ==
LOC: ER 19:31 → NP 19:55
PROVIDERS: Admitting Provider Psychiatry & Neurology Psychiatry; Emergency Provider Emergency Medicine; Family Provider Family Medicine; Visit Provider Psychiatry & Neurology Psychiatry
DX: F33.9 Major depressive disorder, recurrent, unspecified (principal); R45.851 Suicidal ideations; Q87.40 Marfan syndrome, unspecified; F43.12 Post-traumatic stress disorder, chronic; F15.10 Other stimulant abuse, uncomplicated; F17.210 Nicotine dependence, cigarettes, uncomplicated; F41.0 Panic disorder [episodic paroxysmal anxiety]; F41.9 Anxiety disorder, unspecified; M41.9 Scoliosis, unspecified
CPT/HCPCS: 36415; 80053; 80306; 80307; 81001; 81025; 84443; 85025; 87086; 97150; 97165; 99285; J9999